=== PATIENT | female | born 1955 | race Caucasian/White ===

== ENCOUNTER 2017-10-05 09:12 | Emergency (ER) | payer BC ==
[~2017-10-05] VITALS: Ht 154.9 cm; Wt 103.7 kg
[~2017-10-05 09:12] MED LIST: BISOPROLOL-HCT1 EAC2 PO; Bactrim,Septra DS 80 PO; CAL MAG ASPART1 EACH PO; CENTURY CARDIO1 EAC1 PO; CHROMIUM PICO400 MCG PO; CHROMIUM PICOLINATE; EVENING PRIMRO500 MG PO; Ecotrin PO; FISH OIL300 MG PO; FLAX OIL1000 MG PO; GLUCOSAMINE CH1 EAC6 PO; LO-DOSE ASPIRIN81 M1 PO; METFORMIN HCL500 MG PO; MOTRIN800 MG PO; MULTI-VITAMIN-1 EACH PO; OLIVE LEAF EXT250 MG PO; PROTONIX40 MG PO; RESTASIS 01 DROP/0.4 BOTH EYES; VERAPAMIL ER240 MG PO; VERAPAMIL HCL240 MG PO; VITAMIN D-3 401 EACH PO
[2017-10-05 10:37] LABS: APPEARANCE CLEAR ((CLEAR)); BILIRUBIN NEGATIVE; BLOOD NEGATIVE; COLOR YELLOW ((YELLOW)); GLUCOSE (STRIP) NEGATIVE; KETONES NEGATIVE; LEUKOCYTES TRACE; NITRITE NEGATIVE; PROTEIN (STRIP) 30; SPECIFIC GRAVITY 1.023 (1.000-1.030); UROBILINOGEN 0.2 MG/DL (0.2-1.0)
[2017-10-05 11:05] LABS: BACTERIA NONE SEEN /HPF; EPITHELIAL CELLS RARE /HPF; MUCUS TRACE /LPF; RED BLOOD CELLS 0-5 /HPF (0-5); WHITE BLOOD CELLS 0-5 /HPF (0-5)
[2017-10-05 11:07] LABS: BASOPHIL (%) 0.6 % (0-1); BASOPHIL COUNT 0.1 K/uL (0-0.1); EOSINOPHIL (%) 0.5 % (0-5); HEMATOCRIT 45.4 % (36.0-46.0); HEMOGLOBIN 15.6 G/DL (11.9-15.5); IMMATURE GRANULOCYTE (%) 0.4 % (0.0-0.7); LYMPHOCYTE (%) 21.5 % (15-42); LYMPHOCYTE COUNT 1.8 K/uL (1.0-2.8); MCH 32.8 PG (29.0-34.0); MCHC 34.4 G/DL (30.0-36.0); MCV 95.4 FL (83-99); MONOCYTE (%) 6.3 % (3-12); MONOCYTE COUNT 0.5 K/uL (0-0.8); NEUTROPHIL (%) 70.7 % (45-76); PLATELET COUNT 231 K/uL (156-360); RBC DIS.WIDTH-CV 12.1 % (11.8-14.6); RBC DIS.WIDTH-SD 42.7 % (39-53); RED BLOOD COUNT 4.76 M/uL (3.80-5.20); WHITE BLOOD COUNT 8.5 K/uL (4.1-10.2)
[2017-10-05 11:15] LABS: ALBUMIN 4.5 g/dL (3.2-4.8)
[2017-10-05 11:16] LABS: CHLORIDE 104 mEq/L (99-109); POTASSIUM 3.6 mEq/L (3.7-5.4); SODIUM 141 mEq/L (136-147)
[2017-10-05 11:18] LABS: GLUCOSE 120 mg/dL (70-99); TOTAL PROTEIN 7.7 g/dL (6.4-8.3)
[2017-10-05 11:20] LABS: TOTAL BILIRUBIN 0.7 mg/dL (0.0-1.0)
[2017-10-05 11:21] LABS: ALKALINE PHOSPHATASE 98 IU/L (3-129)
[2017-10-05 11:22] LABS: CREATININE 0.8 mg/dL (0.6-1.3); GFR ESTIMATE (CALCULATED) > 59 mL/min/
[2017-10-05 11:23] LABS: AST (GOT) 49 IU/L (2-34); UREA NITROGEN (BUN) 24 mg/dL (9-23)
[2017-10-05 11:25] LABS: ALT (GPT) 58 IU/L (3-49)
[2017-10-05 12:23] LABS: STOOL OCCULT BLD 1ST SPECIMEN NEGATIVE
[2017-10-05 13:59] VITALS: BP 118/95
== END 2017-10-05 14:00 | disposition home or self-care (01) ==
LOC: EME 09:12
PROVIDERS: Emergency Medicine
DX: R19.7 Diarrhea, unspecified (principal); K92.1 Melena; I10 Essential (primary) hypertension; K21.9 Gastro-esophageal reflux disease without esophagitis; Z85.9 Personal history of malignant neoplasm, unspecified; Z79.84 Long term (current) use of oral hypoglycemic drugs; Z79.82 Long term (current) use of aspirin; Z88.0 Allergy status to penicillin; Z88.8 Allergy status to other drugs, medicaments and biological substances
CPT/HCPCS: 74176; 80053; 81003; 82272; 85025; 99281; 99285; J7040

== ENCOUNTER 2018-03-24 12:58 | Emergency (ER) | payer BC ==
[~2018-03-24] VITALS: Ht 154.9 cm; Wt 95.9 kg
[2018-03-24 13:37] LABS: HEMOGLOBIN 14.4 G/DL (11.9-15.5); MCH 32.8 PG (29.0-34.0); MCHC 34.3 G/DL (30.0-36.0); MCV 95.7 FL (83-99); RBC DIS.WIDTH-CV 12.6 % (11.8-14.6); RBC DIS.WIDTH-SD 44.7 % (39-53); RED BLOOD COUNT 4.39 M/uL (3.80-5.20); WHITE BLOOD COUNT 9.5 K/uL (4.1-10.2)
[2018-03-24 13:43] LABS: CHLORIDE 108 mEq/L (99-109); POTASSIUM 3.7 mEq/L (3.7-5.4); SODIUM 144 mEq/L (136-147)
[2018-03-24 13:45] LABS: GLUCOSE 131 mg/dL (70-99)
[2018-03-24 13:49] LABS: CREATININE 0.8 mg/dL (0.6-1.3); GFR ESTIMATE (CALCULATED) > 59 mL/min/
[2018-03-24 13:50] LABS: UREA NITROGEN (BUN) 27 mg/dL (9-23)
[2018-03-24 14:27] LABS: PLAT.SUFFICIENCY ADEQUATE; PLATELET COUNT 204 K/uL (156-360)
[2018-03-24 15:33] LABS: ALBUMIN 4.2 g/dL (3.2-4.8)
[2018-03-24 15:36] LABS: TOTAL PROTEIN 7.3 g/dL (6.4-8.3)
[2018-03-24 15:38] LABS: TOTAL BILIRUBIN 0.7 mg/dL (0.0-1.0)
[2018-03-24 15:39] LABS: ALKALINE PHOSPHATASE 84 IU/L (3-129)
[2018-03-24 15:41] LABS: AST (GOT) 51 IU/L (2-34); DIRECT BILIRUBIN 0.2 mg/dL (0.0-0.3)
[2018-03-24 15:42] LABS: ALT (GPT) 43 IU/L (3-49); LIPASE 31 U/L (1.0-51.0)
[2018-03-24 15:44] LABS: APPEARANCE SL.HAZY ((CLEAR)); BILIRUBIN NEGATIVE; BLOOD SMALL; GLUCOSE (STRIP) NEGATIVE; KETONES NEGATIVE; LEUKOCYTES NEGATIVE; NITRITE NEGATIVE; PROTEIN (STRIP) NEGATIVE; SPECIFIC GRAVITY 1.021 (1.000-1.030); UROBILINOGEN 0.2 MG/DL (0.2-1.0)
[2018-03-24 15:49] LABS: COLOR YELLOW ((YELLOW))
[2018-03-24 15:52] LABS: BACTERIA NONE SEEN /HPF; EPITHELIAL CELLS RARE /HPF; MUCUS TRACE /LPF; RED BLOOD CELLS 0-5 /HPF (0-5); UCUL ADDED? NO; WHITE BLOOD CELLS 0-5 /HPF (0-5)
[2018-03-24 16:54] VITALS: BP 142/74
== END 2018-03-24 16:56 | disposition home or self-care (01) ==
LOC: EME 12:58
PROVIDERS: Physician Assistant
DX: N93.9 Abnormal uterine and vaginal bleeding, unspecified (principal); E11.9 Type 2 diabetes mellitus without complications; I10 Essential (primary) hypertension; K21.9 Gastro-esophageal reflux disease without esophagitis; Z79.84 Long term (current) use of oral hypoglycemic drugs; Z79.82 Long term (current) use of aspirin; Z88.0 Allergy status to penicillin
CPT/HCPCS: 80048; 80076; 81003; 83690; 85027; 86850; 86900; 86901; 99281; 99283